=== PATIENT | female | born 1940 | race Caucasian/White ===

== ENCOUNTER 2017-04-20 18:08 | Emergency (ER) | payer MEDICAID, OTHER ==
[~2017-04-20] VITALS: Ht 144.8 cm; Wt 66.5 kg
[2017-04-20 18:34] VITALS: BP 149/79
[2017-04-20] MEDS ORDERED: KETOROLAC 60 MG/2 ML VIAL IM ONE (19:35)
[2017-04-20] MEDS ORDERED: ALPRAZolam 0.5 MG TAB PO ONE (19:35)
[2017-04-20 19:49] LABS: APPEARANCE,URINE CLEAR (CLEAR); BILIRUBIN,URINE NEGATIVE (NEGATIVE); BLOOD, URINE 1+ (NEGATIVE); COLOR,URINE YELLOW (YELLOW); LEUKOCYTE ESTERASE ,URINE NEGATIVE (NEGATIVE); NITRITE, URINE NEGATIVE (NEGATIVE); UGLUCOSE NEGATIVE (NEGATIVE)
[2017-04-20 20:01] LABS: RBC,URINE 0-5 (RARE) /HPF (0-5); WBC,URINE 0-5 (RARE) /HPF (0-5)
[2017-04-20 22:05] VITALS: BP 111/60
== END 2017-04-20 22:05 | disposition home or self-care (01) ==
LOC: MED 18:08
DX: F41.9 Anxiety disorder, unspecified (principal); M79.1 Myalgia; G51.0 Bell's palsy; R53.83 Other fatigue
CPT/HCPCS: 36415; 71045; 81001; 82310; 82948; 93005; 96372; 99285; J1885; J7030; Q0092

== ENCOUNTER 2022-05-31 13:54 | Emergency (ER) | payer OTHER ==
[~2022-05-31] VITALS: Ht 139.7 cm; Wt 63.0 kg
[~2022-05-31 13:54] MED LIST: ACET-8905 PO; FERR325E14 PO; LEVO-481 PO; METH-1681 PO
[2022-05-31 14:07] VITALS: BP 140/76
--- NOTE | 2022-05-31 14:18 | NUR ---
pt ambulatory w walker to bed 02 accompanied by ida.
--- NOTE | 2022-05-31 14:43 | NUR ---
no distress noted, denies any sob or pain, o2 sat 98% md cole at bs
[2022-05-31] MEDS ORDERED: ALUMINUM HYD/MAG/SIMETHICONE 30 ML UDC PO ONE (14:45)
[2022-05-31 16:28] VITALS: BP 140/76
--- NOTE | 2022-05-31 16:28 | NUR ---
Patient discharged with v/s stable. Written and verbal after care instructions given and explained. Patient verbalized understanding. Ambulatory with GRAND DAUGHTER to car. All questions addressed prior to discharge. Advised to follow up with PMD.
== END 2022-05-31 16:28 | disposition home or self-care (01) ==
LOC: MED 13:54
DX: R09.89 Other specified symptoms and signs involving the circulatory and respiratory systems (principal); Z79.899 Other long term (current) drug therapy; Z79.891 Long term (current) use of opiate analgesic; Z79.2 Long term (current) use of antibiotics
CPT/HCPCS: 70360; 99283; Q0092